=== PATIENT | male | born 1970 | race Two or more races ===

== ENCOUNTER 2024-08-01 04:01 | Emergency (ER) | payer BC ==
[~2024-08-01] VITALS: Ht 182.9 cm; Wt 86.6 kg
[2024-08-01] MEDS ORDERED: METHYLPREDNISOLONE SOD SUCC 125 MG VIAL IV STA (04:29)
[2024-08-01] MEDS ORDERED: 0.9 % SODIUM CHLORIDE 1,000 ML IV STA (04:29)
[2024-08-01 04:31] LABS: ABG PH 7.553 (7.35-7.45); ABG PO2 113.8 mmHg (80-100); ABG pCO2 20.5 mmHg (35-45); BASE EXCESS -2.1 mmol/l; BICARBONATE 17.7 mmol/l (23-25); Tco2 18.3 mmol/l
[2024-08-01] MEDS ORDERED: IPRATROPIUM/ALBUTEROL SULFATE 3 ML AMPUL.NEB IH SCH (05:00)
[2024-08-01 05:35] LABS: CALCIUM 9.3 mg/dL (8.5-10.1); CREATININE SERUM 1.13 mg/dL (0.70-1.30); GFR 67.62; POTASSIUM 3.78 mEq/L (3.5-5.1)
[2024-08-01 05:50] LABS: MEAN CELL VOLUME 88.7 fL (80.0-100.00); MEAN CORPUSCULAR HEMOGLOBIN 30.3 pg (27.00-32.0); MEAN CORPUSCULAR HGB CONC 34.2 g/dl (32.0-36.0); PLATELET COUNT 293 K/uL (150-450); RED BLOOD COUNT 4.96 M/uL (4.00-6.00); RED CELL DISTRIBUTION WIDTH 13.6 % (11.5-14.5)
[2024-08-01 07:12] LABS: allen test SATISFACTORY; o2 21 %; puncture site RADIAL RIGHT
[2024-08-01 08:58] LABS: COCAINE NEGATIVE (NEGATIVE); METHADONE NEGATIVE (NEGATIVE); OPIATES NEGATIVE (NEGATIVE); THC ( Cannabinoids) NEGATIVE (NEGATIVE)
[2024-08-01] MEDS ORDERED: IPRATROPIUM/ALBUTEROL SULFATE 3 ML AMPUL.NEB IH ONE ×2 (09:10→10:17)
== END 2024-08-01 11:46 | disposition home or self-care (01) ==
LOC: ER 04:01
DX: Z77.29 Contact with and (suspected) exposure to other hazardous substances (principal); E11.9 Type 2 diabetes mellitus without complications